=== PATIENT | male | born 1945 | race Caucasian/White ===

== ENCOUNTER 2022-08-17 13:28 | Inpatient (IN) | payer OTHER ==
[~2022-08-17] VITALS: Ht 167.6 cm; Wt 51.7 kg
--- NOTE | 2022-08-17 13:46 | NUR ---
ESTABLISHED IV 20G LEFT AC.
[2022-08-17] MEDS ORDERED: IV NS 0.9% 500 ML BAG IV ONE (14:00)
--- NOTE | 2022-08-17 14:00 | NUR ---
MANGLE ROLL OPERATOR AT BEDSIDE
--- NOTE | 2022-08-17 14:01 | NUR ---
PHARMACY SERVICES DIRECTOR AT BEDSIDE
[2022-08-17 14:29] LABS: LYMPHOCYTES # (AUTO) 2.1 K/uL (0.8-4.8); NEUTROPHILS # (AUTO) 5.7 K/uL (1.8-8.9)
[2022-08-17 14:45] LABS: BASOPHILS % (AUTO) 0.5 % (0.0-2.0); EOSINOPHILS % (AUTO) 2.5 % (0.0-6.0); HEMATOCRIT 28 % (39-51); HEMOGLOBIN 8.6 g/dL (13.5-17.5); LYMPHOCYTES % (AUTO) 23.6 % (20.0-44.0); MEAN CORPUSCULAR HGB CONC 30 g/dl (31.0-36.0); MEAN CORPUSCULAR VOLUME 95 fL (80-96); MONOCYTES # (AUTO) 0.9 K/uL (0.1-1.30); MONOCYTES % (AUTO) 9.8 % (2.0-12.0); NEUTROPHILS % (AUTO) 63.6 % (43.0-81.0); PLATELET COUNT (AUTO) 312 K/uL (150-450); RED BLOOD CELL COUNT(AUTO) 2.98 MIL/uL (4.5-6.0)
--- NOTE | 2022-08-17 14:45 | NUR ---
covid swab collected and sent to lab
[2022-08-17 14:55] LABS: ALANINE AMINOTRANSFERASE < 6 U/L (12-78); ALKALINE PHOSPHATASE 116 U/L (46-116); ASPARTATE AMINOTRANSFERASE 22 U/L (15-37); BILIRUBIN,DIRECT 0.2 mg/dL (0.0-0.2); BILIRUBIN,TOTAL 0.4 mg/dL (0.2-1.0); CALCIUM, SERUM 7.9 mg/dL (8.5-10.1); CARBON DIOXIDE 22 mmol/L (21-32); CHLORIDE 103 mmol/L (98-107); GLUCOSE 78 mg/dL (74-106); POTASSIUM 3.8 mmol/L (3.5-5.1); SODIUM SERUM 137 mmol/L (136-145); TOTAL PROTEIN, SERUM 8.3 g/dL (6.4-8.2); UREA NITROGEN, BLOOD 62 mg/dL (7-18)
[2022-08-17 15:01] LABS: ALBUMIN 1.4 g/dL (3.4-5.0); CREATININE 9.6 mg/dL (0.6-1.3)
--- NOTE | 2022-08-17 15:01 | NUR ---
albumin 1.4 , creatinine 9.6 . md made aware
--- NOTE | 2022-08-17 15:02 | NUR ---
AMILCAR FROM [facility] [phone]
--- NOTE | 2022-08-17 16:12 | NUR ---
CALLED AMILCAR [facility] [phone] WILL CALL AFTER LOOKING AT CLINICALS
--- NOTE | 2022-08-17 16:20 | NUR ---
OIL PUMP STATION OPERATOR CHIEF/MED [facility] [phone]. AWAITING FOR REQUESTED RECORDS.
--- NOTE | 2022-08-17 17:07 | NUR ---
YARIEL MOSER. FAX: [phone]
[2022-08-17] MEDS ORDERED: MULT-447 PO (18:37)
[2022-08-17] MEDS ORDERED: ACET-868 PO (18:37)
[2022-08-17] MEDS ORDERED: CLOP75TA15 PO (18:37)
[2022-08-17] MEDS ORDERED: BENZ200C53 PO (18:37)
[2022-08-17] MEDS ORDERED: CHOL100043 PO (18:37)
[2022-08-17] MEDS ORDERED: ACID1TAB12 PO (18:37)
[2022-08-17] MEDS ORDERED: INSU100I47 SQ (18:37)
[2022-08-17] MEDS ORDERED: MIDO5TAB4 PO (18:37)
[2022-08-17] MEDS ORDERED: MAGN400O6 PO (18:37)
[2022-08-17] MEDS ORDERED: CRAN425C6 PO (18:37)
[2022-08-17] MEDS ORDERED: FLUO20TA28 PO (18:37)
[2022-08-17] MEDS ORDERED: ACET-2605 PO ×2 (18:37)
[2022-08-17] MEDS ORDERED: DOCU-141 PO (18:37)
[2022-08-17] MEDS ORDERED: ATOR10TA PO (18:37)
[2022-08-17] MEDS ORDERED: HEPA50008 SQ (18:37)
[2022-08-17] MEDS ORDERED: DONE10TA44 PO (18:37)
[2022-08-17] MEDS ORDERED: ASCO-340 PO (18:37)
[2022-08-17] MEDS ORDERED: ONDA4TAB5 PO (18:37)
[2022-08-17] MEDS ORDERED: OMEP40CA21 PO (18:37)
--- NOTE | 2022-08-17 19:34 | NUR ---
COVID ANTIGEN SWAB COLLECTED AND SENT TO LAB
--- NOTE | 2022-08-17 19:58 | NUR ---
ROOM 311
--- NOTE | 2022-08-17 20:05 | NUR ---
CALLED AMILCAR FROM [facility] [phone] LEFT FOR AUTH.
--- NOTE | 2022-08-17 20:52 | NUR ---
PT GOING TO ROOM 328 INSTEAD OF 311
--- NOTE | 2022-08-17 20:58 | NUR ---
REPORT GIVEN TO MAISHA HOPPER FOR OMAIRA
--- NOTE | 2022-08-17 21:10 | NUR ---
SALESPERSON WOMEN'S HATS NOTE PATIENT ARRIVED AT THE UNIT.
--- NOTE | 2022-08-17 21:11 | NUR ---
PT TRANSPORTED TO UNIT ON [facility]PO[facility] WITH EMT AND RN AT BEDSIDE.
[2022-08-17 21:15] VITALS: BP_SYST 104; BP_SYST 109; BP_DIAS 52
--- NOTE | 2022-08-17 21:20 | NUR ---
PHOTO MASK PATTERN GENERATORDERMATOLOGIST MANAGING PARTNER NOTE PATIENT WAS TRANSPORTED TO THE UNIT ON THE GURNEY FROM ER. UPON ADMISSION, VITAL SIGNS WERE TAKEN. PATIENT WAS ON RA, TOLERATED WELL. NO S/S OF SOB OR DISTRESS. PATIENT IS ALERT AND ORIENTED, AO X 3. PATIENT HAS IV ACCESS AT HIS LEFT AC, # 20G, SL. PATIENT HAS IJ FOR HD AT HIS RIGH UPPER CHEST, THE DRESSING IS MARGAUX. 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 ORIENTED THE PATIENT WITH SURROUNDINGS, AND SAFETY MEASURES ARE IN PLACE: BED IN LOWEST AND LOCKED POSITION; SIDE RAILS UP X 3; CALL LIGHT AND TABLE ARE WITHIN EASY REACH. WILL MONITOR THE PATIENT AND PROVIDE THE CARE PATIENT NEEDS.
--- NOTE | 2022-08-17 21:54 | NUR ---
ELEMENTARY SPANISH TEACHER NOTE TEXT SARAH MORGAN, INFORMED HER THAT THE PATIENT ARRIVED AT THE UNIT AND WE NEED ORDERS FOR THE PATIENT.
[2022-08-17] MEDS ORDERED: DEXTROSE 50%-WATER 50 ML DISP.SYRIN IV PRN (22:30)
[2022-08-17] MEDS ORDERED: ONDANSETRON HCL/PF 4 MG/2 ML VIAL IVP PRN (22:30)
[2022-08-17] MEDS ORDERED: IV NS 0.9% 1,000 ML IV PRN (22:30)
[2022-08-17] MEDS ORDERED: ACETAMINOPHEN 325 MG TABLET PO PRN (22:30)
[2022-08-17] MEDS ORDERED: MAGNESIUM HYDROXIDE 30 ML UDC PO PRN (22:30)
--- NOTE | 2022-08-17 23:00 | NUR ---
EVALUATOR TRANSFER STUDENTS NOTE RECEIVED MD ORDERS. CALLED THE [facility] @ [phone] TO GET THE MEDICATION ORDERS BEING VERIFIED.
[2022-08-17] MEDS: MIDODRINE HCL (5MG) 5 MG TABLET PO SCH (23:42)
[2022-08-17] MEDS: ATORVASTATIN 10 MG TABLET PO SCH (23:43)
[2022-08-17] MEDS: DONEPEZIL 5 MG TABLET PO SCH (23:43)
[2022-08-17] MEDS: DOCUSATE SODIUM 100 MG CAPSULE PO SCH (23:43)
[2022-08-17] MEDS: BLOOD SUGAR DIAGNOSTIC 1 EACH STRIP IN SCH (23:44)
[2022-08-17] MEDS: HEPARIN SODIUM, PORCINE 5000 UNITS/1 ML VIAL SQ SCH (23:44)
--- NOTE | 2022-08-17 23:55 | NUR ---
STEMMING MACHINE OPERATOR NOTE CHECK PATIENT'S BLOOD SUGAR, THE READING IS" 55. 240 ML OF APPLE JUICE GIVEN TO THE PATIENT ORALLY. WILL RECHECK THE BLOOD SUGAR IN 30 MINS.
[2022-08-18] VITALS (7 sets, daily range): BP systolic 89–146; BP diastolic 51–63
--- NOTE | 2022-08-18 00:29 | NUR ---
ELECTRONICS ENGINEERING MANAGER NOTE RECHECK PATIENT'S BLOOD SUGAR, THE READING IS 78. GIVEN 150 ML OF APPLE JUICE TO THE PATIENT ORALLY. WILL RECHECK THE BLOOD SUGAR IN 30 MINS.
[2022-08-18] MEDS ORDERED: IV D5/ 0.9% NACL 1,000 ML IV PRN (01:30)
--- NOTE | 2022-08-18 06:00 | NUR ---
POND SUPERVISOR NOTE PATIENT'S BS IS 77. 250 ML OF APPLE JUICE GIVEN TO THE PATIENT ORALLY.
[2022-08-18 06:57] LABS: BASOPHILS % (AUTO) 0.3 % (0.0-2.0); EOSINOPHILS % (AUTO) 3.9 % (0.0-6.0); HEMATOCRIT 25 % (39-51); HEMOGLOBIN 7.9 g/dL (13.5-17.5); LYMPHOCYTES # (AUTO) 1.6 K/uL (0.8-4.8); LYMPHOCYTES % (AUTO) 19.6 % (20.0-44.0); MEAN CORPUSCULAR HGB CONC 32 g/dl (31.0-36.0); MEAN CORPUSCULAR VOLUME 93 fL (80-96); MONOCYTES # (AUTO) 0.8 K/uL (0.1-1.30); MONOCYTES % (AUTO) 9.9 % (2.0-12.0); NEUTROPHILS # (AUTO) 5.3 K/uL (1.8-8.9); NEUTROPHILS % (AUTO) 66.3 % (43.0-81.0); PLATELET COUNT (AUTO) 321 K/uL (150-450); RED BLOOD CELL COUNT(AUTO) 2.65 MIL/uL (4.5-6.0); WHITE BLOOD COUNT (AUTO) 8.1 K/uL (4.3-11.0)
--- NOTE | 2022-08-18 07:13 | NUR ---
MAINTENANCE JOB TITLES CLOSING NOTE PATIENT IS SLEEPING IN BED, EASILY BEING AROUSED. PATIENT IS ON RA, TOLERATED WELL. NO S/S OF DISTRESS OR SOB. PATIENT IS ALERT AND ORIENTED, AO X 2-3. PATIENT HAS IV ACCESS AT HIS LEFT AC, # 20G, SL; PATENT AND INTACT. PATIENT HAS IJ FOR HD AT HIS RIGHT UPPER CHEST, THE DRESSING IS MARGAUX. 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 SAFETY MEASURES ARE IN PLACE: BED IN LOWEST AND LOCKED POSITION; SIDE RAILS UP X 3; CALL LIGHT AND TABLE ARE WITHIN EASY REACH. ENDORSED THE DAY SHIFT NURSE TO FOLLOW UP WITH THE CONSULTATIONS; MONITOR PATIENT'S BLOOD SUGAR CLOSELY. WOUND PICTURES WERE TAKEN AND PUT IN THE PATIENT'S CHART.
[2022-08-18 07:23] LABS: CALCIUM, SERUM 7.8 mg/dL (8.5-10.1); CARBON DIOXIDE 21 mmol/L (21-32); CHLORIDE 102 mmol/L (98-107); GLUCOSE 89 mg/dL (74-106); MAGNESIUM 2.4 mg/dL (1.8-2.4); PHOSPHORUS 6.4 mg/dL (2.5-4.9); POTASSIUM 3.8 mmol/L (3.5-5.1); SODIUM SERUM 137 mmol/L (136-145); UREA NITROGEN, BLOOD 68 mg/dL (7-18)
--- NOTE | 2022-08-18 07:29 | NUR ---
SHOE REPAIRER OPENING NOTES RECEIVED PT IN BED, AWAKE. A/O X 3-4, ABLE TO MAKE NEEDS KNOWN. NO C/O PAIN/DISCOMFORT AT THIS TIME. ON RA, NO SIGN OF ACUTE RESPIRATORY DISTRESS. ON CARPET SEWER WITH CURRENT READING OF SR-BBB, HR-71. IV ACCESS IN LAC #20G, SL, C/D/I. HD ACCESS IN THE RIGHT UPPER CHEST, C/D/I. SAFETY MEASURES IN PLACE: BED LOCKED AND IN LOWEST POSITION, CALL LIGHT AND TRAY TABLE WITHIN EASY REACH, SIDE RAILS X 3. WILL CONTINUE TO MONITOR.
[2022-08-18] MEDS ORDERED: OMEPRAZOLE 20 MG CAPSULE.DR PO SCH (07:30)
[2022-08-18 07:32] LABS: CREATININE 10.3 mg/dL (0.6-1.3)
[2022-08-18 07:33] LABS: CHOLESTEROL 55 mg/dL (<200); HDL CHOLESTEROL 10 mg/dL (40-60); LDL 33 mg/dL (0-99); TRIGLYCERIDES 129 mg/dL (30-150)
[2022-08-18] MEDS: PANTOPRAZOLE 40 MG TABLET.DR PO SCH (07:53)
[2022-08-18] MEDS: BLOOD SUGAR DIAGNOSTIC 1 EACH STRIP IN SCH ×4 (07:53→21:43)
[2022-08-18] MEDS: CHOLECALCIFEROL (VITAMIN D 3) 400 UNIT TABLET PO SCH (09:06)
[2022-08-18] MEDS: MULTIVIT W/MINERALS 1 TAB TABLET PO SCH (09:06)
[2022-08-18] MEDS: ASCORBIC ACID 500 MG TABLET PO SCH (09:06)
[2022-08-18] MEDS: HEPARIN SODIUM, PORCINE 5000 UNITS/1 ML VIAL SQ SCH ×2 (09:08→21:44)
[2022-08-18] MEDS: MIDODRINE HCL (5MG) 5 MG TABLET PO SCH ×3 (09:09→16:54)
[2022-08-18] MEDS: ACIDOPHILUS/BULGARICUS 1 EACH TAB.CHEW PO SCH (09:09)
[2022-08-18] MEDS: FLUOXETINE HCL 20 MG CAPSULE PO SCH (09:10)
[2022-08-18] MEDS: CLOPIDOGREL BISULFATE 75 MG TABLET PO SCH (09:11)
--- NOTE | 2022-08-18 09:55 | NUR ---
WOUND CARE CONSULT: LIMITED ASSESSMENT PT IS HAVING HEMODIALYSIS AT THIS TIME. RT DORSAL FOOT NOTED TO HAVE DRY RAISED ESCHARS, PRESENT ON ADMISSION. DR GOMES CALLED FOR DPM CONSULT. DISCUSSED SKIN PROTECTION WITH NURSING STAFF. MD IN AGREEMENT WITH PLAN OF CARE.
[2022-08-18] MEDS ORDERED: Z GUARD REMEDY 4 OZ OINT TP PRN (10:00)
[2022-08-18] MEDS ORDERED: NEPRO VAN 237 ML CAN PO PRN (12:30)
--- NOTE | 2022-08-18 14:20 | NUR ---
RN NOTES TRIED TO GET ORTHOSTATIC BP OF PT BUT WAS UNSUCCESSFUL. PT UNABLE TO TOLERATE TO SIT IN THE SIDE OF THE BED. BP TAKEN WHILE LYING 120/63, HR-75, SITTING IN THE BED 96/57, HI-80 AND 89/55, HI-73. WILL CONTINUE TO MONITOR.
--- NOTE | 2022-08-18 18:40 | NUR ---
PLASTIC MOULD MAKER CLOSING NOTES PT RESTING IN BED, AWAKE. A/O X 2-3, ABLE TO MAKE NEEDS KNOWN. DID NOT C/O PAIN/DISCOMFORT WITHIN THE SHIFT. ON RA, TOLERATED WELL. ON SHOE REPAIRER WITH CURRENT READING OF SR, HR-73. IV ACCESS IN LAC #20G, SL, C/D/I. HD ACCESS IN THE RIGHT UPPER CHEST, C/D/I. PT HAD DIALYSIS TODAY, TOLERATED WELL. PT TURNED AND REPOSITIONED. NEEDS ATTENDED. SAFETY MEASURES IN PLACE: BED LOCKED AND IN LOWEST POSITION, CALL LIGHT AND TRAY TABLE WITHIN EASY REACH, SIDE RAILS X 3. WILL ENDORSE OMAIRA TO PARTNER MARKETING MANAGER NURSE.
--- NOTE | 2022-08-18 19:45 | NUR ---
ZONING ASSISTANT OPENING NOTE PATIENT AWAKE IN BED, PRIMARILY SPEAKS TAGALOG, ALERT/ORIENTED X 2-3. PT STABLE ON RA, NO S/S OF DISTRESS OR SOB NOTED, BREATHING EVEN AND UNLABORED. PATIENT ON EXTERNAL RESIDENT DOCTOR READING SINUS RHYTHM, HR: 69. RIGHT UPPER CHEST HD ACCESS C/D/I. IV ACCESS ON LAC #20G INTACT AND SALINE LOCKED. SAFETY MEASURES IN PLACE: CALL LIGHT WITHIN REACH, SIDE RAILS UP X 3, BED LOCKED IN LOWEST POSITION, HOB ELEVATED, BED ALARM ON. WILL CONTINUE TO MONITOR PATIENT
--- NOTE | 2022-08-18 21:42 | NUR ---
ON AIR PERSONALITY NOTE PATIENT HAS Q12H HEPARIN 5000 UNITS SQ. PATIENT'S HBG= 7.9, HCT = 25 AND PLTS 321. CONTACTED EXCHANGE MECHANIC MD SUHKDEV GUZMÁN WHETHER TO GIVE OR HOLD MEDICATION, PER MD GIVE HEPARIN. NO ACTIVE BLEEDING
[2022-08-18] MEDS: DOCUSATE SODIUM 100 MG CAPSULE PO SCH (21:43)
[2022-08-18] MEDS: ATORVASTATIN 10 MG TABLET PO SCH (21:43)
[2022-08-18] MEDS: DONEPEZIL 5 MG TABLET PO SCH (21:43)
[2022-08-18] MEDS: INSULIN REGULAR, HUMAN 100 UNIT/ML 3 ML VIAL SQ PRN (22:06)
[2022-08-19] VITALS: BP 105/59
--- NOTE | 2022-08-19 06:38 | NUR ---
BLOW MOULDING MACHINE OPERATOR CLOSING NOTE PATIENT SLEEPING IN BED, PRIMARILY SPEAKS TAGALOG, ALERT/ORIENTED X 2-3. PT STABLE ON RA, NO S/S OF DISTRESS OR SOB NOTED, BREATHING EVEN AND UNLABORED. PATIENT ON EXTERNAL MASON TENDER RESTORATION LABOR READING SINUS RHYTHM, HR: 71. RIGHT UPPER CHEST HD ACCESS C/D/I. NEW IV ACCESS ON RIGHT WRIST #22G INTACT AND SALINE LOCKED. MEDICATIONS GIVEN ORDERED, PT NEEDS MET THROUGHOUT SHIFT, PATIENT TURNED AND REPOSITIONED. SAFETY MEASURES IN PLACE: CALL LIGHT WITHIN REACH, SIDE RAILS UP X 3, BED LOCKED IN LOWEST POSITION, HOB ELEVATED, BED ALARM ON. WILL ENDORSE TO DAYSHIFT RN FOR CONTINUITY OF CARE
[2022-08-19] MEDS: BLOOD SUGAR DIAGNOSTIC 1 EACH STRIP IN SCH ×4 (06:52→22:00)
[2022-08-19] MEDS: INSULIN REGULAR, HUMAN 100 UNIT/ML 3 ML VIAL SQ PRN (06:52)
[2022-08-19 07:05] LABS: BASOPHILS % (AUTO) 0.6 % (0.0-2.0); HEMATOCRIT 29 % (39-51); HEMOGLOBIN 8.6 g/dL (13.5-17.5); LYMPHOCYTES # (AUTO) 1.6 K/uL (0.8-4.8); LYMPHOCYTES % (AUTO) 30.3 % (20.0-44.0); MEAN CORPUSCULAR HGB CONC 30 g/dl (31.0-36.0); MEAN CORPUSCULAR VOLUME 97 fL (80-96); MONOCYTES # (AUTO) 0.5 K/uL (0.1-1.30); MONOCYTES % (AUTO) 9.6 % (2.0-12.0); NEUTROPHILS % (AUTO) 56.5 % (43.0-81.0); PLATELET COUNT (AUTO) 279 K/uL (150-450); RED BLOOD CELL COUNT(AUTO) 2.96 MIL/uL (4.5-6.0); WHITE BLOOD COUNT (AUTO) 5.3 K/uL (4.3-11.0)
--- NOTE | 2022-08-19 07:26 | NUR ---
PROSTHETIC LAB TECHNICIAN OPENING NOTES RECEIVED PT IN BED, AWAKE. A/O X 2-3, ABLE TO MAKE NEEDS KNOWN. DENIES PAIN/DISCOMFORT AT THIS TIME. ON RA, TOLERATED WELL, NO SIGN OF ACUTE RESPIRATORY DISTRESS. ON IMAGE SCIENTIST WITH CURRENT READING OF SR WITH BBB, HR-70. IV ACCESS IN LAC #20G, SL, C/D/I. HD ACCESS IN THE RIGHT UPPER CHEST, C/D/I. SAFETY MEASURES IN PLACE: BED LOCKED AND IN LOWEST POSITION, CALL LIGHT AND TRAY TABLE WITHIN EASY REACH, SIDE RAILS X 3. WILL CONTINUE TO MONITOR.
[2022-08-19] MEDS ORDERED: LEVOTHYROXINE SODIUM 25 MCG TABLET PO SCH (07:30)
[2022-08-19 07:45] LABS: CALCIUM, SERUM 7.6 mg/dL (8.5-10.1); CARBON DIOXIDE 26 mmol/L (21-32); CHLORIDE 101 mmol/L (98-107); CREATININE 6.8 mg/dL (0.6-1.3); GLUCOSE 79 mg/dL (74-106); MAGNESIUM 2.2 mg/dL (1.8-2.4); PHOSPHORUS 4.1 mg/dL (2.5-4.9); POTASSIUM 3.7 mmol/L (3.5-5.1); SODIUM SERUM 133 mmol/L (136-145); UREA NITROGEN, BLOOD 36 mg/dL (7-18)
[2022-08-19] MEDS: PANTOPRAZOLE 40 MG TABLET.DR PO SCH (07:53)
[2022-08-19 08:00] VITALS: BP 115/65
[2022-08-19] MEDS: MIDODRINE HCL (5MG) 5 MG TABLET PO SCH ×3 (09:03→17:13)
[2022-08-19] MEDS: FLUOXETINE HCL 20 MG CAPSULE PO SCH (09:03)
[2022-08-19] MEDS: MULTIVIT W/MINERALS 1 TAB TABLET PO SCH (09:03)
[2022-08-19] MEDS: ASCORBIC ACID 500 MG TABLET PO SCH (09:03)
[2022-08-19] MEDS: CLOPIDOGREL BISULFATE 75 MG TABLET PO SCH (09:03)
[2022-08-19] MEDS: CHOLECALCIFEROL (VITAMIN D 3) 400 UNIT TABLET PO SCH (09:04)
[2022-08-19] MEDS: ACIDOPHILUS/BULGARICUS 1 EACH TAB.CHEW PO SCH (09:04)
[2022-08-19] MEDS: HEPARIN SODIUM, PORCINE 5000 UNITS/1 ML VIAL SQ SCH ×2 (09:05→21:00)
[2022-08-19] MEDS ORDERED: LEVO25TA7 PO (11:32)
[2022-08-19 12:00] VITALS: BP 125/70
[2022-08-19 16:00] VITALS: BP 132/64
[2022-08-19 17:13] VITALS: BP 132/64
--- NOTE | 2022-08-19 17:25 | NUR ---
RN NOTES CALLED [facility] AT [phone] AND SPOKE WITH MAISHA MAN. GAVE REPORT AND DISCHARGE INSTRUCTIONS, VERBALIZED UNDERSTANDING. INFORMED THAT PT'S ETA IS 1930. WILL ENDORSE TO LEASING ASSISTANT NURSE.
--- NOTE | 2022-08-19 18:37 | NUR ---
BLUEPRINT MACHINE OPERATOR OPENING NOTES PT RESTING IN BED, AWAKE. A/O X 2-3, ABLE TO MAKE NEEDS KNOWN. DENIES PAIN/DISCOMFORT WITHIN THE SHIFT. ON RA, TOLERATED WELL. ON HELPER METAL HANGING WITH CURRENT READING OF SR WITH BBB, HR-70. IV ACCESS IN LAC #20G, SL, C/D/I. HD ACCESS IN THE RIGHT UPPER CHEST, C/D/I. NEEDS ATTENDED. SAFETY MEASURES IN PLACE: BED LOCKED AND IN LOWEST POSITION, CALL LIGHT AND TRAY TABLE WITHIN EASY REACH, SIDE RAILS X 3. PT FOR DISCHARGED. WILL ENDORSE OMAIRA TO PIGMENT PUSHER. Addendum: 08/19/22 at 1942 by Neris Arauz RN DOCUMENTATION ERROR
--- NOTE | 2022-08-19 18:42 | NUR ---
WOODWINDS TEACHER CLOSING NOTES PT RESTING IN BED, AWAKE. A/O X 2-3, ABLE TO MAKE NEEDS KNOWN. DENIES PAIN/DISCOMFORT WITHIN THE SHIFT. ON RA, TOLERATED WELL. ON PCTS WITH CURRENT READING OF SR WITH BBB, HR-70. IV ACCESS IN LAC #20G, SL, C/D/I. HD ACCESS IN THE RIGHT UPPER CHEST, C/D/I. NEEDS ATTENDED. SAFETY MEASURES IN PLACE: BED LOCKED AND IN LOWEST POSITION, CALL LIGHT AND TRAY TABLE WITHIN EASY REACH, SIDE RAILS X 3. PT FOR DISCHARGED. WILL ENDORSE OMAIRA TO PORCELAIN ENAMEL SPRAYER.
--- NOTE | 2022-08-19 19:54 | NUR ---
HOUSE DETECTIVE OPENING NOTES: RECEIVED PATIENT AWAKE IN BED, BED IN LOW POSITION, CALL LIGHTS WITHIN REACH, NO COMPLAIN OF PAIN AND DISCOMFORT AT THIS TIME, ON ROOM AUR SATURATING WELL, PATIENT IS A/OX2-3 ABLE TO MAKE NEEDS KNOWN, IV LINE AT RIGHT WRIST 322SL, WITH RIGHT UPPER CHEST HD CATHETER NONE BLEEDING LAST HD AT 08/18 WITH 1 LTR OUT, ON TELE MONITOR- SR-71, NO SYMPTOMS WAS OBSERVED, PATIENT AWAITING FOR DISCHARGE, PATIENT KEPT CLEAN AND DRY ALL NEEDS MET WILL CONTINUE TO MONITOR
--- NOTE | 2022-08-19 21:00 | NUR ---
LIBRARY TECHNICIAN NOTES: PATIENT WAS CHIEF GUARD BY LIFELINE TRANSFER TO FACILITY ON STABLE CONDITION, V/S ARE WITHIN NORMAL RANGE, ON ROOM AIR SATURATING AT 98%, NO COMPLAIN OF PAIN AND DISCOMFORT, TELE MONITOR- REMOVED, IV LINE REMOVED, ALL DOCUMENTATION WAS ENDORSE TO AMBULANCE STAFF, PATIENT WAS TRANSFER VIA GURNEY, LEFT THE FACILITY AT 2056 ON STABLE CONDITION,
[2022-08-19] MEDS: DOCUSATE SODIUM 100 MG CAPSULE PO SCH (22:00)
[2022-08-19] MEDS: DONEPEZIL 5 MG TABLET PO SCH (22:00)
[2022-08-19] MEDS: ATORVASTATIN 10 MG TABLET PO SCH (22:00)
--- NOTE | 2022-08-19 22:01 | NUR ---
RN NOTES: MEDICATION NOT GIVEN PATIENT WAS DISCHARGE.
[2022-08-20 03:47] LABS: EOSINOPHILS % (MANUAL) 2 % (0-4); LYMPHOCYTES % (MANUAL) 23 % (16-48); MONOCYTES % (MANUAL) 6 % (0-11.0); NEUTROPHILS % (MANUAL) 69 (42-76)
== END 2022-08-19 21:00 | DRG 73 ==
LOC: ER 13:30 → TELE 20:42
PROVIDERS: ADMIT Nurse Practitioner Acute Care; ATTEND Nurse Practitioner Family
PROC: 5A1D70Z Performance of Urinary Filtration, Intermittent, Less than 6 Hours Per Day (ICD-10-PCS; principal; 2022-08-18)
DX: G90.8 Other disorders of autonomic nervous system (principal); E43 Unspecified severe protein-calorie malnutrition; N18.6 End stage renal disease; I95.1 Orthostatic hypotension; E86.1 Hypovolemia; Z95.1 Presence of aortocoronary bypass graft; Z20.822 Contact with and (suspected) exposure to COVID-19; Z99.2 Dependence on renal dialysis; D63.8 Anemia in other chronic diseases classified elsewhere; E03.8 Other specified hypothyroidism; E11.22 Type 2 diabetes mellitus with diabetic chronic kidney disease; E11.649 Type 2 diabetes mellitus with hypoglycemia without coma; E88.09 Other disorders of plasma-protein metabolism, not elsewhere classified; F03.90 Unspecified dementia, unspecified severity, without behavioral disturbance, psychotic disturbance, mood disturbance, and anxiety; M89.8X9 Other specified disorders of bone, unspecified site; Z79.4 Long term (current) use of insulin; Z79.02 Long term (current) use of antithrombotics/antiplatelets; Z79.899 Other long term (current) drug therapy; Z79.01 Long term (current) use of anticoagulants
CPT/HCPCS: 36415; 71045-TC; 80048-TC; 80061-TC; 80076-TC; 82962-TC; 83605-TC; 83735-TC; 84100-TC; 84439-TC; 84443-TC; 84484-TC; 85025-TC; 85730-TC; 86706; 87040-TC; 87081-TC; 87340; 90935-TC; 92526; 92611-TC; 93307-TC; 97110-TC; 97530-TC; C9803; G0378; J1644; J1815; J7030